=== PATIENT | male | born 1955 | race African-American/Black ===

== ENCOUNTER 2017-01-13 17:28 | Emergency (ER) | payer OTHER ==
[2017-01-13] MEDS ORDERED: NORCO 5/325 PO ONE (19:27)
[2017-01-13] MEDS ORDERED: FLEXERIL PO ONE (19:27)
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
[2017-01-13 21:31] VITALS: BP 143/87
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
[2017-01-14] MEDS ORDERED: XYLOCAINE MPF 2% ONE (08:48)
[2017-01-14] MEDS ORDERED: ZEMURON IV ONE (08:48)
== END 2017-01-13 21:30 | disposition home or self-care (01) ==
LOC: ED 17:28
DX: S16.1XXA Strain of muscle, fascia and tendon at neck level, initial encounter (principal); R07.89 Other chest pain; I10 Essential (primary) hypertension; V49.49XA Driver injured in collision with other motor vehicles in traffic accident, initial encounter; W22.11XA Striking against or struck by driver side automobile airbag, initial encounter; Y93.89 Activity, other specified; Y92.89 Other specified places as the place of occurrence of the external cause; Y99.8 Other external cause status